=== PATIENT | male | born 1935 | race Two or more races ===

== ENCOUNTER 2017-07-27 07:00 | Day surgery (SDC) | payer OTHER ==
[~2017-07-27] VITALS: Ht 167.6 cm; Wt 63.5 kg
[2017-07-28] MEDS ORDERED: ULTRACET PO (09:17)
[2017-07-28] MEDS ORDERED: AMOX1TAB5 PO (09:17)
[2017-07-28] MEDS ORDERED: PROBIOTIC & AC1 EACH PO (09:17)
== END 2017-07-28 08:00 | disposition home or self-care (01) ==
LOC: CIR.AMB 07:00 → O/R 07:12 → SURH 07:12 → EDSTATUS 09:30 → SURH 11:31 → O/R 11:31 → SURH 15:15 → CIR.AMB 07-28 08:00 → O/R 07-28 15:27 → SURH 07-28 15:27
DX: D12.8 Benign neoplasm of rectum (principal)